=== PATIENT | female | born 2000 ===

== ENCOUNTER 2022-04-15 10:04 | Outpatient (CLI) | payer OTHER | END 2022-04-15 11:50 | disposition home or self-care (01) | LOC: PRENATAL 10:04 | PROVIDERS: ATTEND Obstetrics & Gynecology Maternal & Fetal Medicine | DX: O36.80X0 Pregnancy with inconclusive fetal viability, not applicable or unspecified (principal); Z36.0 Encounter for antenatal screening for chromosomal anomalies; Z14.8 Genetic carrier of other disease; Z3A.14 14 weeks gestation of pregnancy ==

== ENCOUNTER 2022-04-30 03:11 | Emergency (ER) | payer OTHER ==
[~2022-04-30] VITALS: Ht 162.6 cm; Wt 58.1 kg
[2022-04-30] MEDS ORDERED: PRENA1 CHEW TA1.4 MG PO (03:22)
[2022-04-30] MEDS ORDERED: FOLIC ACID0.8 M1 PO (03:23)
== END 2022-04-30 10:41 | disposition home or self-care (01) ==
LOC: ER 03:11
DX: O26.892 Other specified pregnancy related conditions, second trimester (principal); Z3A.17 17 weeks gestation of pregnancy; R10.2 Pelvic and perineal pain; E86.0 Dehydration

== ENCOUNTER 2022-05-22 15:27 | Outpatient (CLI) | payer OTHER ==
[~2022-05-22 15:27] MED LIST: FOLIC ACID0.8 M1 PO; PRENA1 CHEW TA1.4 MG PO
== END 2022-05-22 16:27 | disposition home or self-care (01) ==
LOC: PRENATAL 15:27
PROVIDERS: ATTEND Obstetrics & Gynecology Maternal & Fetal Medicine
DX: O35.3XX0 Maternal care for (suspected) damage to fetus from viral disease in mother, not applicable or unspecified (principal); O35.9XX0 Maternal care for (suspected) fetal abnormality and damage, unspecified, not applicable or unspecified; Z3A.20 20 weeks gestation of pregnancy

== ENCOUNTER 2022-07-08 18:15 | Outpatient (CLI) | payer OTHER | END 2022-07-09 11:59 | disposition home or self-care (01) | LOC: OBS/DEL 18:15 | PROVIDERS: ATTEND Obstetrics & Gynecology | DX: O23.32 Infections of other parts of urinary tract in pregnancy, second trimester (principal); N39.0 Urinary tract infection, site not specified; R10.2 Pelvic and perineal pain; Z3A.26 26 weeks gestation of pregnancy ==

== ENCOUNTER 2022-09-06 21:30 | Outpatient (CLI) | payer OTHER | END 2022-09-07 11:12 | disposition home or self-care (01) | LOC: OBS/DEL 21:30 | PROVIDERS: ATTEND Obstetrics & Gynecology | DX: O26.893 Other specified pregnancy related conditions, third trimester (principal); R10.2 Pelvic and perineal pain; Z3A.35 35 weeks gestation of pregnancy ==

== ENCOUNTER 2022-10-01 13:30 | Inpatient (IN) | payer OTHER ==
[~2022-10-01] VITALS: Ht 165.1 cm; Wt 70.3 kg
== END 2022-10-08 12:58 | disposition home or self-care (01) | DRG 807 ==
LOC: OB/GYN 10-06 00:19 → LDR 10-06 00:19 → OB/GYN 10-06 07:32
PROVIDERS: ADMIT Obstetrics & Gynecology; ATTEND Obstetrics & Gynecology
PROC: 10E0XZZ Delivery of Products of Conception, External Approach (ICD-10-PCS; principal; 2022-10-06)
PROC: 0KQM0ZZ Repair Perineum Muscle, Open Approach (ICD-10-PCS; 2022-10-06)
PROC: 4A1HXCZ Monitoring of Products of Conception, Cardiac Rate, External Approach (ICD-10-PCS; 2022-10-06)
DX: O70.1 Second degree perineal laceration during delivery (principal); Z37.0 Single live birth; Z3A.39 39 weeks gestation of pregnancy; Z20.822 Contact with and (suspected) exposure to COVID-19

== ENCOUNTER 2022-10-04 10:48 | Outpatient (CLI) | payer OTHER | END 2022-10-04 13:17 | disposition left against medical advice (07) | LOC: OBS/DEL 10:48 | PROVIDERS: ATTEND Obstetrics & Gynecology | DX: O47.1 False labor at or after 37 completed weeks of gestation (principal); Z3A.39 39 weeks gestation of pregnancy; Z20.822 Contact with and (suspected) exposure to COVID-19 ==